=== PATIENT | male | born 1940 | race Caucasian/White ===

== ENCOUNTER 2018-10-07 17:33 | Observation (INO) ==
[2018-10-07] MEDS ORDERED: Aspirin 81 MG TAB.CHEW PO STA (17:44)
[2018-10-07] MEDS ORDERED: 0.9 % Sodium Chloride 1,000 ML IVC SCH ×2 (17:45→19:26)
--- NOTE | 2018-10-07 17:46 | Emergency Department Note ---
Disposition Clinical Impression: Chest pain Disposition: Admitted As Inpatient Condition: Good Referrals: Oumar Mcfarland MD [Primary Care Provider] - General Adult HPI - General Stated complaint: discomfort around heart area Time Seen by Provider: 10/07/18 17:40 Source: patient Mode of arrival: ambulatory Limitations: no limitations Nursing Notes Reviewed: Yes Vital Signs Reviewed: Yes - History of Present Illness HPI Narrative: Patient had some left chest discomfort last night that went away. This afternoon he had more chest discomfort told his about it and he gave him 4 baby aspirin and brought him here to the ER. 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 louise. He denies any shortness of breath fevers chills nausea vomiting the present time. Onset (ago): day(s) (2) Location: chest Radiation: non-radiation Pain Severity: moderate Quality: aching Consistency: intermittent Improves with: nothing Worsens with: nothing Associated symptoms: Reports: denies other symptoms - Related Data Home Medications Medication Instructions Recorded Confirmed Aspirin [Lo-Dose Aspirin EC] 81 mg PO DAILY 10/07/18 10/07/18 Atorvastatin [Lipitor] 80 mg PO HS 10/07/18 10/07/18 Metoprolol Succinate [Toprol Xl] 50 mg PO DAILY 10/07/18 10/07/18 Allergies Allergy/AdvReac Type Severity Reaction Status Date / Time No Known Allergies Allergy Verified 10/07/18 17:47 All systems ED: reviewed and negative except as stated. Review of Systems: As Per HPI Constitutional: Denies: fever, chills, weakness, weight change Eyes: Denies: eye pain, eye discharge, vision change ENT ED: Denies: ear pain, throat pain, dental pain, hearing loss, epistaxis, congestion, dysphagia Cardiovascular: Reports: as per HPI, chest pain. Denies: palpitations, dyspnea on exertion, edema, syncope Respiratory: Denies: cough, dyspnea, wheezes, hemoptysis, stridor Gastrointestinal: Denies: abdominal pain, nausea, vomiting, diarrhea, constipation, hematemesis, melena, hematochezia Genitourinary: Denies: urgency, dysuria, frequency, hematuria Musculoskeletal: Denies: back pain, neck pain, arthralgia, myalgia Integumentary: Denies: rash, abrasion, lesions Neurological: Denies: headache, weakness, numbness, paresthesias, confusion, abnormal gait, vertigo Psychiatric: Denies: anxiety, depression, suicidal thoughts, homicidal thoughts, auditory hallucinations, visual hallucinations Endocrine: Denies: fatigue Hematological/Lymphatic: Denies: easy bleeding, easy bruising Allergic/Immunologic: Denies: facial swelling, urticaria Past Medical History - Past Medical History Attestation: Yes The following information was validated with the patient. Source: patient, nursing notes reviewed Physical Exam - General Limitations: no limitations General appearance: alert, in no apparent distress - Head Head exam: atraumatic, normocephalic, normal inspection - Eye Eye exam: Present: normal appearance, PERRL, EOMI - ENT ENT exam: normal exam, normal oropharynx, mucous membranes moist - Neck Neck exam: Present: normal inspection, full ROM, trachea midline - Chest Chest inspection: Present: normal inspection, symmetric chest wall rise - Respiratory Respiratory exam: Present: normal lung sounds bilaterally - Cardiovascular Cardiovascular exam: Present: regular rate, normal rhythm, normal heart sounds - Abdominal Exam Abdominal exam: Present: soft, Non-Tender. Absent: tenderness, distention, guarding, rebound, rigidity - Extremities Exam Extremities exam: Present: normal inspection, full ROM. Absent: tenderness, ped al edema - Back Exam Back exam: Present: normal inspection, full ROM. Absent: tenderness - Neurological Exam Neurological exam: Present: alert, oriented X3, CN II-XII intact - Psychiatric Psychiatric exam: Present: normal affect, normal mood - Skin Skin exam: Present: warm, dry, intact Medical Decision Making - [facility] Narrative Medical decision making narrative: I reviewed the patient's medication list The case was discussed with his primary care provider Dr. Owens who is graciously accepted admission to the hospital - Lab Data Lab results reviewed: Yes I reviewed the patient's lab results. - Radiology Data Radiology results reviewed: Yes I reviewed the patient's radiology results. - EKG Data EKG #1 EKG attestation: Yes I reviewed and interpreted this EKG. EKG results narrative: EKG shows sinus rhythm with a rate of 57 bpm first-degree AV block with a SD interval 244 ms. QRS duration 102 ms QT interval 426 QTC 420 ms. R axis -[address]-T wave changes appreciated. EKG shows normal: sinus rhythm
[2018-10-07] MEDS: Nitroglycerin 0.4 MG TAB.SUBL SL PRN ×2 (18:11→18:21)
[2018-10-07 18:12] LABS: Basophils # 0.1 K/mcL (0.0-0.2); Basophils % 0.9 %; Eosinophils # 0.8 K/mcL (0.0-0.6); Eosinophils % 8.8 %; Hematocrit 38.2 % (37.5-50.1); Immature Granulocytes % 0.1 % (0-4); Lymphocytes # 2.9 K/mcL (0.6-4.6); Lymphocytes % 34.6 %; Mean Corpuscular Hemoglobin 32.5 pg (28.0-33.3); Mean Corpuscular Volume 95.5 fL (83.0-100.0); Mean Platelet Volume 12.1 fL (9.4-12.4); Monocytes % 12.2 %; Neutrophils # 3.7 K/mcL (1.6-8.9); Platelet Count 153 K/mcL (140-400); Red Cell Distribution Width 13.8 % (11.5-14.5); Segmented Neutrophils % 43.4 %
[2018-10-07 18:20] LABS: INR 1.1; Prothrombin Time 12.4 Seconds (9.4-12.1)
[2018-10-07 18:22] LABS: Activated Partial Thrombo Time 37.2 Seconds (26.0-36.0)
[2018-10-07 18:26] LABS: Alanine Aminotransferase 23 Units/L (7-52); Albumin 2.5 g/dL (3.5-5.7); Albumin/Globulin Ratio 0.7 (1.1-2.2); Alkaline Phosphatase 179 Units/L (34-104); Aspartate Amino Transferase 51 Units/L (13-39); BUN/Creatinine Ratio 13 (6-26); Bilirubin,Total 1.4 mg/dL (0.3-1.0); Blood Urea Nitrogen 16 mg/dL (8-23); Calcium 8.4 mg/dL (8.6-10.3); Carbon Dioxide 26 mEq/L (23-29); Chloride 110 mEq/L (98-107); Globulin 3.6 g/dL (2.4-3.5); Glucose 99 mg/dL (70-105); Osmolality,Calculated 285 (280-300); Potassium 3.6 mEq/L (3.5-5.1); Sodium 137 mEq/L (136-145); Total Protein 6.1 g/dL (6.4-8.9); eGFR For Non-African Americans 59 (> 60)
[2018-10-07 18:30] LABS: Troponin I < 0.03 ng/mL (< 0.04)
[2018-10-07] MEDS ORDERED: Naloxone 0.4 MG/ML INJ IVP PRN (19:26)
[2018-10-07] MEDS ORDERED: Nitroglycerin 0.4 MG TAB.SUBL SL PRN (19:26)
--- NOTE | 2018-10-07 22:21 | Internal Med History&Physical ---
<Albaro Galicia - Last Filed: 10/08/18 05:11> Date of Encounter: 10/08/18 Internal Medicine - H&P: HPI History of present illness: Mr. Lorenzo is a 78 year old male Internal Medicine - H&P: Meds Aspirin [Lo-Dose Aspirin EC] 81 mg PO DAILY 10/07/18 [History] Atorvastatin [Lipitor] 80 mg PO HS 10/07/18 [History] Metoprolol Succinate [Toprol Xl] 25 mg PO DAILY 10/07/18 [History] Allergy/AdvReac Type Severity Reaction Status Date / Time No Known Allergies Allergy Verified 10/07/18 17:47 All Systems PM: A 10-system review of systems was performed and is negative for pertinent findings except as documented above in the HPI. - Constitutional Vitals: Temp Pulse Resp BP Pulse Ox 98.1 F 63 16 145/60 95 10/08/18 00:15 10/08/18 00:15 10/08/18 00:15 10/08/18 00:15 10/08/18 00:15 Internal Med - H&P Results - Labs CBC & Chem 7: 10/07/18 17:58 10/07/18 17:58 Labs: Short CBC 10/07/18 Range/Units 17:58 WBC 8.5 (4.3-11.1) K/mcL Hgb 13.0 (12.9-16.9) g/dL Hct 38.2 (37.5-50.1) % Plt Count 153 (140-400) K/mcL Neutrophils # 3.7 (1.6-8.9) K/mcL BMP 10/07/18 17:58 Sodium 137 Potassium 3.6 Chloride 110 H Carbon Dioxide 26 BUN 16 Creatinine 1.19 Glucose 99 Calcium 8.4 L Cardiac Enzymes 10/07/18 10/08/18 Range/Units 17:58 00:34 Troponin I < 0.03 < 0.03 (< 0.04) ng/mL Liver Function 10/07/18 Range/Units 17:58 Total Bilirubin 1.4 H (0.3-1.0) mg/dL AST 51 H (13-39) Units/L ALT 23 (7-52) Units/L Alkaline Phosphatase 179 H (34-104) Units/L Albumin 2.5 L (3.5-5.7) g/dL - Impressions ITS Impressions Chest X-Ray 10/07/18 17:44 IMPRESSION: No acute process. D/ / Hi Mccabe MD / Hi Mccabe MD Interpreting Provider: Hi Mccabe MD <Oumar Mcfarland - Last Filed: 10/08/18 11:11> Date of Encounter: 10/08/18 Time of Encounter: 22:21 Assessment and Plan (1) Chest pain Current visit: Yes Status: Acute Patient is currently pain-free. He has a known history of CAD and having "burning up pounding in my heart" type of sensation is angina until proven otherwise. No obvious signs that he has had an acute [place]. He will have serial enzymes, continue his cardiac monitoring and reevaluation of his symptoms and signs. I discussed with him indications of heart catheterization versus stress test and need for cardiology evaluation. Qualifiers: Chest pain type: precordial pain Qualified Code(s): R07.2 - Precordial pain (2) History of coronary artery disease Current visit: Yes Status: Chronic Known history of coronary artery disease and previous stent by Dr. Simon in 2006. This chest pain is angina until proven otherwise. Plan as above. (3) History of gastric ulcer Current visit: Yes Status: Resolved Currently no abdominal symptoms or signs of GI bleed. CBC is normal. No history of melena or hematochezia. (4) Elevated LFTs Current visit: Yes Status: Chronic Minimal elevation of AST and bilirubin. On further review this is been elevated minimally for the past few years. He has no symptoms localizing to the biliary her GI system. Internal Medicine - H&P: HPI Chief complaint: "I had a burning and pounding in my chest" Admitted From: Emergency Dept Plans for Post Hospital Care: Home History of present illness: Mr. Lorenzo is a 78 year old male with known history of CAD history of 2 cardiac stent placements one of which was in 2006 by , history of recurring gastric ulcer is admitted via the ER with a history of a "burning and pounding in my heart". 78-year-old gentleman who basically works every day and is quite active was well until yesterday when he started having "burning and pounding in my heart". He started to occur yesterday in the afternoon. It lasted the rest of the day and into today. 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 They gave him 4 aspirin and his usual medications. He said he has not had a sensation like this for a year or more. He said he had to discomfort in his chest until he came to the emergency room and was given nitroglycerin. He states he has chronic right back pain and right shoulder pain since his right shoulder surgery many years ago. He has had some URI symptoms recently with some cough with mucus and took some OTC medication. He has had nausea but no vomiting. He denies any diaphoresis, dyspnea. He said the people thought he "did not look right". He also noticed recently swelling in his legs and he thought it was because of his socks constricting circulation. When I asked if there is anything that he did to make things better or worse she could not think of anything. 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 Patient had an echocardiogram at 's office fairly recently, but I do not have a copy of that. Past Med Surg Social Fam HX - Past Medical History Medical history: coronary artery disease (A cardiac stent placed in 2 separate occasions), hyperlipidemia, kidney stones Psychiatric history: no psych history - Past Surgical History Surgical History: angioplasty/stent Additional surgical history: Right full shoulder replacement, bleeding ulcers - Social History Smoking Status: Never smoker Smokeless Tobacco Status: No Alcohol use: rarely Drug use: none - Family History Mother Living Status: Hx Family Cancer: Yes Father Living Status: Hx Family Cancer: Yes All Systems PM: A 10-system review of systems was performed and is negative for pertinent findings except as documented above in the HPI. - Constitutional Constitutional: no chills, no fever(s), no falls, no malaise - EENT Eyes: no change in vision, no loss of vision Nose, mouth and throat: no sinus pain, no sore throat - Cardiovascular Cardiovascular ROS IM: as per HPI, chest pain, no dyspnea, no dyspnea on exertion, no irregular heart rhythm, no orthopnea - Respiratory Respiratory: no cough, no dyspnea, no chest congestion, no excessive phlegm prod uction - Gastrointestinal Gastrointestinal: no abdominal pain, no change in bowel habits, no constipation, no diarrhea, no hematochezia, no melena - Genitourinary Genitourinary ROS male: no difficulty urinating - Musculoskeletal Additional comments: Complains right shoulder pain, he is status post shoulder surgery many years ago. - Neurological Neurological ROS: no focal weakness, no numbness, no tremor(s), no vertigo - Psychiatric Psychiatric: no confusion, no depression - Constitutional Vitals: Temp Pulse Resp BP Pulse Ox 97.6 F 56 16 176/75 97 10/07/18 21:17 10/07/18 21:17 10/07/18 21:17 10/07/18 21:17 10/07/18 21:17 General appearance: Present: A&O X 3, pleasant, no acute distress, answers questions appropriately - Head Head exam: Present: atraumatic - ENT ENT exam: Present: mucous membranes moist, TM's normal bilaterally - Neck Neck exam general surgery: Absent: tenderness, nuchal rigidity, thyromegaly Additional comments: No carotid bruits - Respiratory Respiratory exam: Present: CTAB. Absent: respiratory distress - Cardiovascular Cardiovascular exam: Present: RRR, +S1, +S2, systolic murmur (2/6 systolic murmur heard best at the left upper sternal border) - GI/Abdominal GI/Abdominal exam: Present: soft. Absent: hepatomegaly, mass, pulsatile mass, tenderness - Extremities Exam Extremities exam: Absent: calf tenderness Additional comments: He has mild pitting above his sock line bilaterally. No Tenderness. Feet show excellent results. His pulses and only trace edema. He is tender at the right anterior shoulder - Back Exam Additional comments: No CVAT. No back or spine tenderness. - Neurological Exam Neurological exam: Present: CN II-XII intact, oriented X3, no focal deficits Internal Med - H&P Results - Labs CBC & Chem 7: 10/08/18 05:30 10/08/18 05:30 Labs: Short CBC 10/07/18 Range/Units 17:58 WBC 8.5 (4.3-11.1) K/mcL Hgb 13.0 (12.9-16.9) g/dL Hct 38.2 (37.5-50.1) % Plt Count 153 (140-400) K/mcL Neutrophils # 3.7 (1.6-8.9) K/mcL BMP 10/07/18 17:58 Sodium 137 Potassium 3.6 Chloride 110 H Carbon Dioxide 26 BUN 16 Creatinine 1.19 Glucose 99 Calcium 8.4 L Cardiac Enzymes 10/07/18 Range/Units 17:58 Troponin I < 0.03 (< 0.04) ng/mL Liver Function 10/07/18 Range/Units 17:58 Total Bilirubin 1.4 H (0.3-1.0) mg/dL AST 51 H (13-39) Units/L ALT 23 (7-52) Units/L Alkaline Phosphatase 179 H (34-104) Units/L Albumin 2.5 L (3.5-5.7) g/dL Labs have been reviewed. Troponin less than 0.03. Minimal elevation of the bilirubin and AST which is chronic for him. - EKG Data -: EKG Interpreted by Myself (EKG shows sinus bradycardia with no acute ischemic changes.) - Impressions ITS Impressions Chest X-Ray 10/07/18 17:44
[2018-10-08] MEDS ORDERED: *HR* Enoxaparin 40 MG/0.4 ML SYRINGE SQ SCH (06:00)
[2018-10-08 06:01] LABS: Basophils # 0.1 K/mcL (0.0-0.2); Basophils % 1.1 %; Eosinophils # 0.8 K/mcL (0.0-0.6); Hematocrit 34.3 % (37.5-50.1); Hemoglobin 11.6 g/dL (12.9-16.9); Immature Granulocytes % 0.1 % (0-4); Lymphocytes # 2.9 K/mcL (0.6-4.6); Lymphocytes % 41.1 %; Mean Corpuscular HGB Conc 33.8 g/dL (31.6-35.5); Mean Corpuscular Hemoglobin 31.9 pg (28.0-33.3); Mean Corpuscular Volume 94.2 fL (83.0-100.0); Mean Platelet Volume 12.4 fL (9.4-12.4); Monocytes # 0.9 K/mcL (0.0-1.3); Monocytes % 13.2 %; Neutrophils # 2.4 K/mcL (1.6-8.9); Platelet Count 133 K/mcL (140-400); Red Blood Count 3.64 M/mcL (4.19-5.50); Red Cell Distribution Width 13.8 % (11.5-14.5); Segmented Neutrophils % 33.5 %
[2018-10-08 06:22] LABS: Albumin 2.1 g/dL (3.5-5.7); Albumin/Globulin Ratio 0.7 (1.1-2.2); Bilirubin,Direct 0.5 mg/dL (0.0-0.2); Bilirubin,Total 1.5 mg/dL (0.3-1.0); Globulin 3.1 g/dL (2.4-3.5); Total Protein 5.2 g/dL (6.4-8.9)
[2018-10-08 06:23] LABS: BUN/Creatinine Ratio 15 (6-26); Blood Urea Nitrogen 16 mg/dL (8-23); Carbon Dioxide 25 mEq/L (23-29); Chloride 111 mEq/L (98-107); Glucose 85 mg/dL (70-105); Osmolality,Calculated 288 (280-300); Potassium 3.7 mEq/L (3.5-5.1); Sodium 139 mEq/L (136-145); eGFR For Non-African Americans > 60 (> 60)
[2018-10-08] MEDS ORDERED: Metoprolol XL (24 HR) Succ 25 MG TAB.ER.24H PO SCH (09:00)
[2018-10-08] MEDS ORDERED: Aspirin Enteric Coated 81 MG Tablet PO SCH (09:00)
[2018-10-08] MEDS ORDERED: Metoprolol XL (24 HR) Succ 50 MG TAB.ER.24H PO SCH (09:00)
[2018-10-08 11:14] VITALS: BP 150/75
--- NOTE | 2018-10-08 11:15 | Discharge Summary ---
- NOTES TO OUTPATIENT PROVIDER Notes to Outpatient Provider: #1. Outpatient nuclear stress test arranged at [facility] for next Friday10/14/18. He will then need cardiology follow-up arranged. He prefers Dr. Simon at [facility]. Date of Encounter: 10/08/18 Time of Encounter: 11:12 - Discharge Diagnosis (1) Chest pain Priority: Primary Status: Acute Comments: Patient was admitted to observation bed overnight with history of chest complaints of pressure, pain and pounding in his heart. His serial enzymes which were negative. He was pain free during the hospitalization. He states his pain was resolved with nitroglycerin taken in the ER. He has a known history of previous stent placements by Dr. Simon several years ago. He is not been having symptoms like this until the past 24-48 hours. With serial enzymes being negative, EKG monitoring unremarkable/unchanged and he is pain-free. He will have cardiac stress test arranged for next Friday as outpatient. I talked to patient and regarding need to go to emergency room if his symptoms recur as I would anticipate at that point that he should have a heart catheterization for recurrence/unstable angina. He will be discharged with nitroglycerin as well as his continued aspirin, statin and beta jennifer Qualifiers: Chest pain type: precordial pain Qualified Code(s): R07.2 - Precordial pain (2) History of coronary artery disease Priority: Secondary Status: Chronic Comments: Known history of coronary artery disease as above. Cardiac stents were placed on 2 different occasions many years ago. Stress test planned. (3) History of gastric ulcer Priority: Secondary Status: Resolved Comments: Previous gastric ulcer and significant bleeding. No recurrence of those symptoms. (4) Elevated LFTs Priority: Secondary Status: Chronic Comments: Minimally elevated AST and bilirubin without any GI symptoms. Review of the records show these of been elevated in the past. No intervention or investigation was done at this point. Hospital course: Mr. Lorenzo is a 78 year old male with known history of CAD and previous stent placement was admitted overnight with history of chest pain and pressure and pounding. 2 the night he was a symptom back. Serial enzymes are negative. EKG and telemetry are stable. He has no cardiac symptoms today. He will be discharged to home have follow-up cardiac stress test performed. See the diagnoses above. Discharge discussed with: patient, family - Time Spent with Patient Total time spent providing and/or coordinating discharge services: - Discharge Medications Prescriptions: Nitroglycerin 0.4 mg SL Q5MIN PRN #25 tab.subl PRN Reason: Chest Pain Home Medications: Aspirin [Lo-Dose Aspirin EC] 81 mg PO DAILY 10/07/18 [History] Atorvastatin [Lipitor] 80 mg PO HS 10/07/18 [History] Metoprolol Succinate [Toprol Xl] 25 mg PO DAILY 10/07/18 [History] Nitroglycerin 0.4 mg SL Q5MIN PRN #25 tab.subl 10/08/18 [Rx] Allergies/Adverse Reactions: Allergy/AdvReac Type Severity Reaction Status Date / Time No Known Allergies Allergy Verified 10/07/18 17:47 Date of admission: 10/07/18 18:58 Primary care physician: Oumar Mcfarland MD Discharging clinician: Oumar Mcfarland Anticipated date of discharge: 10/08/18 - Constitutional Vitals: Temp Pulse Resp BP Pulse Ox 98.2 F 57 16 135/67 94 10/08/18 07:37 10/08/18 07:37 10/08/18 07:37 10/08/18 07:37 10/08/18 07:37 General appearance: Present: A&O X 3, pleasant, no acute distress, answers quest ions appropriately - Respiratory Respiratory exam: Present: CTAB - Cardiovascular Cardiovascular exam: Present: RRR, +S1, +S2, systolic murmur (2/6 systolic murmur at the left upper sternal border) - Extremities Exam Extremities exam: Present: pedal edema (Trace pedal and ankle edema.). Absent: calf tenderness - Neurological Exam Neurological exam: Present: oriented X3, no focal deficits - Patient Status Disposition: Home, Self-Care Condition: Good Functional capacity at discharge: independent ambulation Overall status at discharge: patient is back to baseline - Discharge Instructions Follow Up With: Oumar Mcfarland MD [Primary Care Provider] - (Follow-up appointment will be arranged after he has his stress testing done) Forms: ED Satisfaction Letter Additional Instructions: Cardiac stress test to be done next Friday10/14/18. - Diet and Activity Activity: other (Recommend not returning to work until after cardiac testing done, rest and take it easy) Diet: low fat, low cholesterol, low salt diet
--- NOTE | 2018-10-08 22:03 | Electrocardiograph Report ---
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
--- NOTE | 2018-10-09 15:57 | Electrocardiograph Report ---
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
== END 2018-10-08 12:01 | disposition home or self-care (01) ==
LOC: EMEROOGRE 17:33 → INPGRE 17:33
PROVIDERS: ADMIT Family Medicine; ATTEND Family Medicine